=== PATIENT | male | born 1975 | race Caucasian/White ===

== ENCOUNTER → 2017-12-24 | Emergency (ER) | payer OTHER ==
[~2017-12-24] VITALS: Ht 172.7 cm; Wt 81.6 kg
[~2017-12-24] MED LIST: BISOPROLOL FUMA10 MG PO
== END | disposition home or self-care (01) ==
LOC: ER 20:47 → CPU-OBS 20:48
DX: R07.89 Other chest pain (principal); M94.0 Chondrocostal junction syndrome [Tietze]
CPT/HCPCS: G0378; G0379; 93005

== ENCOUNTER → 2021-07-02 | Emergency (ER) | payer OTHER ==
[~2021-07-02] VITALS: Ht 172.7 cm; Wt 86.2 kg
== END | disposition left against medical advice (07) ==
LOC: ER 02:36
DX: R07.89 Other chest pain (principal); Z53.29 Procedure and treatment not carried out because of patient's decision for other reasons

== ENCOUNTER 2024-12-14 01:58 | Emergency (ER) | payer OTHER ==
[~2024-12-14] VITALS: Ht 172.7 cm; Wt 76.2 kg
[2024-12-14] MEDS ORDERED: ACETAMINOPHEN 500 MG GEL..CAP PO STA (03:13)
[2024-12-14] MEDS ORDERED: MECLIZINE HCL 25 MG TABLET PO STA (03:13)
[2024-12-14] MEDS ORDERED: MECLIZINE HCL 25 MG TABLET PO ONE (03:16)
[2024-12-14] MEDS ORDERED: ACETAMINOPHEN 500 MG GEL..CAP PO ONE (03:16)
[2024-12-14 03:46] LABS: HEMATOCRIT 42.3 % (39.0-48.0); HEMOGLOBIN 14.3 g/dL (13-16.00); MEAN CELL VOLUME 93.7 fL (80.0-100.00); MEAN CORPUSCULAR HEMOGLOBIN 31.7 pg (27.00-32.0); MEAN CORPUSCULAR HGB CONC 33.8 g/dl (32.0-36.0); PLATELET COUNT 263 K/uL (150-450); RED BLOOD COUNT 4.52 M/uL (4.00-6.00); RED CELL DISTRIBUTION WIDTH 14.3 % (11.5-14.5)
[2024-12-14 04:06] LABS: CREATININE SERUM 0.86 mg/dL (0.70-1.30); GFR 94.13; POTASSIUM 3.99 mEq/L (3.5-5.1)
[2024-12-14] MEDS ORDERED: MOTION SICKNESS25 M1 PO (05:17)
== END 2024-12-14 06:10 ==
LOC: ER 01:59
PROVIDERS: General Practice
DX: R42 Dizziness and giddiness (principal); R51.9 Headache, unspecified